=== PATIENT | female | born 1995 | race Two or more races ===

== ENCOUNTER 2023-04-30 11:26 | Emergency (ER) | payer MEDICAID ==
[~2023-04-30] VITALS: Ht 154.9 cm; Wt 70.0 kg
[2023-04-30 11:53] VITALS: BP 105/76; PULSE 76; RESP 16; O2SAT 100
[2023-04-30 13:07] LABS: Urine Bacteria NONE SEEN /hpf (None Seen); Urine Blood Negative /uL (Negative); Urine Clarity Clear (Clear); Urine Color Yellow (Yellow); Urine Mucus FEW (None Seen); Urine Protein, UAD Negative (Negative); Urine Specific Gravity 1.023 (1.001-1.035); Urine Urobilinogen Normal (Negative); Urine WBC 2 /hpf (0 - 5)
[2023-04-30] MEDS ORDERED: ACETAMINOPHEN 500 MG TAB PO ONE (14:45)
[2023-04-30 14:49] VITALS: TEMP 98.2
[2023-04-30] MEDS ORDERED: IBUP-1456 PO (15:38)
== END 2023-04-30 15:47 | disposition home or self-care (01) ==
LOC: ER 11:26
DX: N83.202 Unspecified ovarian cyst, left side (principal); R10.2 Pelvic and perineal pain; Z32.02 Encounter for pregnancy test, result negative
CPT/HCPCS: 72170; 76856; 81001; 81025